=== PATIENT | male | born 1955 | race Caucasian/White ===

== ENCOUNTER 2019-01-22 18:24 | Emergency (ER) | payer OTHER ==
[~2019-01-22] VITALS: Ht 172.7 cm; Wt 88.5 kg
[2019-01-22 20:30] VITALS: BP 119/71
== END 2019-01-22 20:30 | disposition home or self-care (01) ==
LOC: ER 18:24
DX: I80.02 Phlebitis and thrombophlebitis of superficial vessels of left lower extremity (principal)